=== PATIENT | female | born 1965 | race Caucasian/White ===

== ENCOUNTER 2016-08-21 10:32 | Inpatient (IN) | payer BC, MEDICARE ==
[~2016-08-21] VITALS: Ht 157.5 cm; Wt 60.8 kg
[2016-08-21 11:01] LABS: Urine RBC None Seen /hpf (0 - 4)
[2016-08-21 11:07] LABS: Urine Bilirubin Negative (Negative); Urine Blood Negative /uL (Negative); Urine Color Straw (Yellow); Urine Glucose Normal (Normal); Urine Ketone Negative (Negative); Urine Nitrite Negative (Negative); Urine Squamous Epithelial Cell FEW /hpf (<5); Urine Urobilinogen Normal (Negative); Urine pH 6.5 (5.0-8.0)
[2016-08-21 11:20] LABS: Basophils # (auto) 0 uL; Basophils % (auto) 0.2 % (0.0-2.0); CONDITION Y; Eosinophils # (auto) 0.1 uL; Eosinophils % (auto) 0.5 % (0.0-7.0); Hemoglobin 14.8 g/dL (12.2-16.2); Lymphocytes # (auto) 1.4 uL; Lymphocytes % (auto) 14.4 % (10.0-50.0); Mean Corpuscular Hemoglobin 30.6 pg (28.0-32.0); Mean Corpuscular Hgb Conc. 33.6 g/dL (32.0-36.0); Mean Corpuscular Volume 91.1 fL (80.0-100.0); Mean Platelet Volume 8.8 fL (7.4-10.4); Monocytes # (auto) 0.5 uL; Monocytes % (auto) 4.7 % (0.0-12.0); Neutrophils # (auto) 7.8 uL; Neutrophils % (auto) 80.2 % (37.0-80.0); Platelet Count (auto) 227 10^3/uL (140-450); Red Cell Distribution Width 13.4 % (11.6-16.0); White Blood Cell 9.7 10^3/uL (4.4-10.8)
[2016-08-21 11:51] LABS: Albumin 4.2 g/dL (3.4-5.0); Bilirubin, Total 0.4 mg/dL (0.2-1.0); Calcium 9.1 mg/dL (8.5-10.1); Total Protein 7.6 g/dL (6.4-8.2)
[2016-08-21] MEDS ORDERED: PANTOPRAZOLE SODIUM 40 MG/10 ML VIAL IV STA (14:37)
[2016-08-21] MEDS ORDERED: SODIUM CHLORIDE 0.9% 500 ML IVB ONE (14:37)
[2016-08-21] MEDS ORDERED: IOHEXOL 300 MG/ML 100ML BOTTLE IJ ONE (14:41)
[2016-08-21] MEDS ORDERED: ONDANSETRON HCL 4 MG/2 ML VIAL IV ONE (14:45)
[2016-08-21] MEDS ORDERED: HYDROmorphone HCL 2 MG/ML VL IV ONE (14:45)
[2016-08-21 15:10] LABS: INR 0.95 (0.9-1.15); Partial Thromboplastin Time 25.7 sec (22.64-33.71); Prothrombin Time 10.4 sec (9.37-12.3)
[2016-08-21] MEDS ORDERED: TEMAZEPAM 15 MG CAP PO PRN (16:45)
[2016-08-21] MEDS ORDERED: ONDANSETRON HCL 4 MG/2 ML VIAL IV PRN (16:45)
[2016-08-21] MEDS ORDERED: traMADol HCL 50 MG TAB PO PRN (16:45)
[2016-08-21] MEDS ORDERED: cefTRIAXone 1GM/50ML D5W 50 ML IV ONE (16:45)
[2016-08-21] MEDS ORDERED: metroNIDAZOLE 500MG/100ML 100 ML IV ONE (16:45)
[2016-08-21] MEDS ORDERED: ACETAMINOPHEN 325 MG TAB PO PRN (16:45)
[2016-08-21 17:43] LABS: Hematocrit 41.3 % (36.0-46.0); Hemoglobin 13.9 g/dL (12.2-16.2)
[2016-08-21] MEDS: methylPREDNISolone SOD SUCC 40 MG/ML VL IV SCH ×2 (17:55→23:21)
[2016-08-21] MEDS: MULTIPLE VITAMIN TAB PO SCH (17:55)
[2016-08-21] MEDS: SODIUM CHLORIDE 0.9% 1,000 ML IV SCH ×2 (17:55→21:59)
[2016-08-21] MEDS: MORPHINE SULF INJ 2 MG/ML SYRINGE 1ML IV PRN ×2 (17:56→21:59)
[2016-08-21] MEDS ORDERED: GOLYTELY 4L KIT PO ONE (18:00)
[2016-08-21 21:58] VITALS: BP 149/69
[2016-08-21] MEDS: metroNIDAZOLE 500MG/100ML 100 ML IV SCH (21:58)
[2016-08-21] MEDS ORDERED: ATORVASTATIN 20 MG TAB PO SCH (22:00)
[2016-08-21] MEDS: CLOTRIMAZOLE 1 % CREAM 15GM TOP SCH (22:00)
[2016-08-21] MEDS: FAMOTIDINE 20 MG TAB PO SCH (22:02)
[2016-08-21 22:14] VITALS: BP 149/69
[2016-08-21] MEDS: HYDROCORTISONE ACET 25 MG RECTAL SUPP PR SCH (23:21)
[2016-08-22] MEDS ORDERED: TEMAZEPAM 15 MG CAP PO ONE (03:00)
[2016-08-22 04:57] VITALS: BP 132/62
[2016-08-22] MEDS: methylPREDNISolone SOD SUCC 40 MG/ML VL IV SCH ×2 (06:04→12:49)
[2016-08-22] MEDS: metroNIDAZOLE 500MG/100ML 100 ML IV SCH ×3 (06:04→20:42)
[2016-08-22 07:59] LABS: Basophils # (auto) 0 uL; CONDITION Y; Eosinophils # (auto) 0 uL; Eosinophils % (auto) 0.1 % (0.0-7.0); Hematocrit 39.2 % (36.0-46.0); Hemoglobin 13.1 g/dL (12.2-16.2); Lymphocytes # (auto) 0.6 uL; Lymphocytes % (auto) 5.8 % (10.0-50.0); Mean Corpuscular Hemoglobin 30.3 pg (28.0-32.0); Mean Corpuscular Hgb Conc. 33.5 g/dL (32.0-36.0); Mean Corpuscular Volume 90.4 fL (80.0-100.0); Mean Platelet Volume 9.1 fL (7.4-10.4); Monocytes # (auto) 0.1 uL; Monocytes % (auto) 0.7 % (0.0-12.0); Neutrophils # (auto) 9.9 uL; Neutrophils % (auto) 93.4 % (37.0-80.0); Platelet Count (auto) 208 10^3/uL (140-450); Red Cell Distribution Width 13.3 % (11.6-16.0); White Blood Cell 10.6 10^3/uL (4.4-10.8)
[2016-08-22] MEDS ORDERED: ALPRAZolam 0.25 MG TAB PO ONE (08:00)
[2016-08-22] MEDS: MULTIPLE VITAMIN TAB PO SCH (08:05)
[2016-08-22] MEDS: FAMOTIDINE 20 MG TAB PO SCH ×2 (08:05→20:42)
[2016-08-22 08:11] LABS: Albumin 3.4 g/dL (3.4-5.0); BUN/Creatinine Ratio 14.6; Calcium 8.4 mg/dL (8.5-10.1); Potassium 3.8 mmol/L (3.5-5.1)
[2016-08-22 08:14] LABS: Bilirubin, Total 0.4 mg/dL (0.2-1.0); Total Protein 6.7 g/dL (6.4-8.2)
[2016-08-22] MEDS: MORPHINE SULF INJ 2 MG/ML SYRINGE 1ML IV PRN (08:29)
[2016-08-22 08:30] VITALS: BP 136/78
[2016-08-22] MEDS: SODIUM CHLORIDE 0.9% 1,000 ML IV SCH ×2 (08:51→19:18)
[2016-08-22] MEDS ORDERED: cefTRIAXone 1GM/50ML D5W 50 ML IV SCH (09:00)
[2016-08-22] MEDS ORDERED: diphenhdrAMINE HCL 50 MG/1 ML VL ONE (10:23)
[2016-08-22] MEDS ORDERED: SODIUM CHLORIDE LOCK 10 ML ONE (10:23)
[2016-08-22] MEDS: HYDROCORTISONE ACET 25 MG RECTAL SUPP PR SCH ×2 (10:43→20:43)
[2016-08-22] MEDS: CLOTRIMAZOLE 1 % CREAM 15GM TOP SCH ×2 (10:44→20:43)
[2016-08-22] MEDS ORDERED: LORazepam 2MG/ML-1ML VIAL IV ONE (10:45)
[2016-08-22] MEDS: fentaNYL CITRATE 100 MCG/2 ML VL ONE ×3 (11:53→11:59)
[2016-08-22] MEDS: MIDAZOLAM HCL 5 MG/ML-1ML VIAL ONE ×3 (11:53→11:59)
[2016-08-22] MEDS ORDERED: fentaNYL CITRATE 100 MCG/2 ML VL ONE (12:04)
[2016-08-22] MEDS ORDERED: MIDAZOLAM HCL 5 MG/ML-1ML VIAL ONE (12:04)
[2016-08-22 12:22] VITALS: BP 148/47
[2016-08-22] MEDS ORDERED: ZOLPIDEM TARTRATE 5 MG TAB PO PRN (17:00)
[2016-08-22 17:21] VITALS: BP 127/78
[2016-08-22] MEDS: LORazepam 2MG/ML-1ML VIAL IV PRN (17:27)
[2016-08-22 22:07] VITALS: BP 125/73
[2016-08-23] MEDS: SODIUM CHLORIDE 0.9% 1,000 ML IV SCH ×2 (02:00→07:59)
[2016-08-23 04:24] VITALS: BP 116/44
[2016-08-23] MEDS: metroNIDAZOLE 500MG/100ML 100 ML IV SCH (04:32)
[2016-08-23 06:25] LABS: Basophils # (auto) 0 uL; Basophils % (auto) 0.1 % (0.0-2.0); CONDITION Y; Eosinophils # (auto) 0 uL; Eosinophils % (auto) 0.1 % (0.0-7.0); Hematocrit 36.7 % (36.0-46.0); Hemoglobin 12.3 g/dL (12.2-16.2); Lymphocytes # (auto) 1.2 uL; Lymphocytes % (auto) 10.3 % (10.0-50.0); Mean Corpuscular Hemoglobin 30.9 pg (28.0-32.0); Mean Corpuscular Hgb Conc. 33.7 g/dL (32.0-36.0); Mean Corpuscular Volume 91.7 fL (80.0-100.0); Mean Platelet Volume 9.2 fL (7.4-10.4); Monocytes # (auto) 0.6 uL; Monocytes % (auto) 5.4 % (0.0-12.0); Neutrophils # (auto) 9.7 uL; Neutrophils % (auto) 84.1 % (37.0-80.0); Platelet Count (auto) 192 10^3/uL (140-450); Red Cell Distribution Width 13.5 % (11.6-16.0); White Blood Cell 11.5 10^3/uL (4.4-10.8)
[2016-08-23] MEDS: LORazepam 2MG/ML-1ML VIAL IV PRN (07:57)
[2016-08-23 09:08] VITALS: BP_SYST 102; BP_SYST 141; BP_DIAS 64; BP_DIAS 72
[2016-08-23] MEDS: FAMOTIDINE 20 MG TAB PO SCH (09:38)
[2016-08-23] MEDS: MULTIPLE VITAMIN TAB PO SCH (09:38)
[2016-08-23] MEDS: HYDROCORTISONE ACET 25 MG RECTAL SUPP PR SCH (09:39)
[2016-08-23] MEDS: MORPHINE SULF INJ 2 MG/ML SYRINGE 1ML IV PRN (09:53)
[2016-08-23] MEDS ORDERED: LIDOCAINE 1% HCL (LOCAL ANESTH.) INJ 20ML MDV ONE (09:53)
[2016-08-23] MEDS: CLOTRIMAZOLE 1 % CREAM 15GM TOP SCH (09:57)
[2016-08-23 11:02] VITALS: BP 141/72
[2016-08-23 11:46] VITALS: BP 145/77
[2016-08-23] MEDS ORDERED: MIDAZOLAM HCL 1MG/1ML-2 ML VIAL ONE (12:04)
[2016-08-23] MEDS ORDERED: PROPOFOL 10 MG/ML 20 ML IV ONE (12:20)
[2016-08-23] MEDS ORDERED: fentaNYL CITRATE 100 MCG/2 ML VL ONE (12:23)
[2016-08-23] MEDS ORDERED: ONDANSETRON HCL 4 MG/2 ML VIAL IV ONE (13:00)
[2016-08-23] MEDS ORDERED: hydrALAZINE HCL 20 MG/ML VL IV PRN (13:00)
[2016-08-23] MEDS ORDERED: ePHEDrine SULFATE 50 MG/ML AMP IV PRN (13:00)
[2016-08-23] MEDS ORDERED: fentaNYL CITRATE 100 MCG/2 ML VL IV ONE (13:00)
[2016-08-23] MEDS ORDERED: CIPROFLOXACIN HYDROCHLORIDE 250 MG TAB PO SCH (14:00)
[2016-08-23] MEDS ORDERED: metroNIDAZOLE 500 MG TAB PO SCH (14:00)
[2016-08-23 17:06] VITALS: BP 137/77
[2016-08-23 17:28] VITALS: BP 141/72
== END 2016-08-23 18:15 | disposition home or self-care (01) | DRG 392 ==
LOC: ER 10:32 → TELE 10:33 → WEST WING 21:10
PROVIDERS: ADMIT Internal Medicine; ATTEND Internal Medicine
PROC: 0DJD8ZZ Inspection of Lower Intestinal Tract, Via Natural or Artificial Opening Endoscopic (ICD-10-PCS; principal; 2016-08-22 11:50)
PROC: 0DBM8ZX Excision of Descending Colon, Via Natural or Artificial Opening Endoscopic, Diagnostic (ICD-10-PCS; 2016-08-23)
DX: K52.9 Noninfective gastroenteritis and colitis, unspecified (principal); E78.5 Hyperlipidemia, unspecified; E86.0 Dehydration; F41.9 Anxiety disorder, unspecified; F12.90 Cannabis use, unspecified, uncomplicated; G35 Multiple sclerosis; Z88.2 Allergy status to sulfonamides
CPT/HCPCS: 36415; 45378; 45380; 71010; 74177; 80053; 81001; 83690; 83735; 85014; 85018; 85025; 85610; 85730; 87040; 87045; 87493; 87899; 93005; 94761; C9113; J0696; J2001; J2250; J2405; J2704; J3490